=== PATIENT | female | born 2000 | race Caucasian/White ===

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

== ENCOUNTER → 2020-02-22 | Outpatient (REF) | payer OTHER ==
[2020-02-22 13:33] LABS: APPEARANCE, URINE CLOUDY (CLEAR); BACTERIA, URINE AUTO 2+ (NEGATIVE); BILIRUBIN, URINE AUTO NEGATIVE (NEGATIVE); BLOOD, URINE BLOOD NEGATIVE (NEGATIVE); COLOR, URINE YELLOW (YELLOW); GLUCOSE, URINE (UA) AUTO NEGATIVE (NEGATIVE); KETONE, URINE AUTO NEGATIVE (NEGATIVE); LEUKOCYTE ESTERASE, URINE AUTO 2+ (NEGATIVE); MUCUS, URINE SMALL (NEGATIVE); NITRITE, URINE AUTO NEGATIVE (NEGATIVE); PROTEIN, URINE AUTO NEGATIVE (NEGATIVE); RBC, URINE AUTO 1 /HPF (0-3); SPECIFIC GRAVITY URINE AUTO 1.019 (1.002-1.035); SQUAMOUS EPITHELIAL CELL UR AU 0 /HPF (0-6); UROBILINOGEN, URINE AUTO 0.2 mg/dL (0.0-2.0); WBC, URINE AUTO 38 /HPF (0-3)
== END ==
LOC: M SMT 12:53
PROVIDERS: ATTEND Nurse Practitioner Women's Health
DX: M54.5 Low back pain (principal); N39.0 Urinary tract infection, site not specified

== ENCOUNTER → 2020-03-12 | Outpatient (CLI) | payer OTHER ==
--- NOTE | 2020-03-12 09:42 | REP ---
INDICATION: LOW BACK PAIN, UTI, LEFT LOWER QUAD PAIN COMPARISON: 08/16/2019 TECHNIQUE: Real time ahumada scale ultrasound examination using curved array transducer. FINDINGS: The bilateral kidneys are normal in reniform shape, echotexture, and size. No hydronephrosis, nephrolithiasis, cystic or renal mass lesion appreciated. Right kidney measures 10.2 x 5.6 x 4.0 cm. Left kidney measures 9.8 x 4.4 x 4.0 cm. Bladder is under distended but grossly normal as visualized. IMPRESSION: 1. Normal renal ultrasound. <Electronically signed by Mark Berkowitz > 03/12/20 [id number]
--- NOTE | 2020-03-12 11:02 | REP ---
INDICATION: LOW BACK PAIN, UTI, LEFT LOWER QUAD PAIN COMPARISON: None. TECHNIQUE: Transabdominal pelvic ultrasound followed by transvaginal examination for better evaluation of the endometrium and adnexa with color Doppler evaluation of the ovaries. FINDINGS: Bladder is unremarkable and measures 11.4 x 7.8 x 10.5 cm. Normal anteverted uterus measures 8.3 x 2.4 x 3.5 cm. The endometrial complex measures 2.6 mm thickness. No discrete uterine or endometrial abnormalities are appreciated. Bilateral ovaries are normal in appearance and vascularity without evidence for torsion. Right ovary measures 2.6 x 2.2 x 2.1 cm; R I = 0.55. Left ovary measures 2.2 x 1.8 x 2.3 cm; R I = 0.42. No pelvic fluid or adnexal abnormality. IMPRESSION: Normal pelvic ultrasound. <Electronically signed by Mark Berkowitz > 03/12/20 [id number]
== END ==
LOC: M RAD 08:55
PROVIDERS: ATTEND Nurse Practitioner Women's Health
DX: R10.32 Left lower quadrant pain (principal); M54.5 Low back pain; N39.0 Urinary tract infection, site not specified